=== PATIENT | male | born 1975 | race Caucasian/White ===

== ENCOUNTER 2020-01-03 16:06 | Outpatient (CLI) | payer OTHER, BC, SELFPAY ==
--- NOTE | ~2020-01-03 | CT_ITS ---
EXAMINATION: CT sinus wo con DATE: 01/03/2020 16:23 INDICATION: Chronic congestion. Chronic sinusitis. TECHNIQUE: Computed tomography (CT) of the paranasal sinuses was performed without contrast. Iterativ e reconstruction technique was employed. Exam dose: 284.29 mGy-cm total exam DLP. COMPARISON: None FINDINGS: There is rightward bowing of the nasal septum. There is asymmetric soft tissue swelling of the right middle and inferior nasal turbinates. There is soft tissue thickening in the right maxillary ostium area and mild soft tissue thickening bu t patency of the right infundibulum. The left ostiomeatal unit is clear. There is a small mucus retention cyst or polyp of each maxillary sinus. There is patchy soft tissue thickening of the ethmoid air cells bilaterally and mild mucoperiosteal t hickening of both frontal sinuses. There is a small mucus retention cyst of the right sphenoid sinus. The mastoid air cells are normally developed and aerated. Middle and inner ear apparatus appear margarito l. IMPRESSION: Rightward bowing of nasal septum Asymmetric soft tissue thickening of the right middle and inferior nasal turbinates Soft tissue thickening of the right ostiomeatal unit, right maxillary ostium Small mucous retention cysts of both axillary sinuses and right sphenoid sinus Patchy soft tissue thickening of the ethmoid air cells and minimally of the frontal sinuses Reviewed, dictated and finalized at [facility]. Reviewed, dictated and finalized at [facility]. IMPRESSION: Rightward bowing of nasal septum Asymmetric soft tissue thickening of the right middle and inferior nasal turbin ates Soft tissue thickening of the right ostiomeatal unit, right maxillary ostium Small mucous retention cysts of both axillary sinuses and right sphenoid sinus Patchy soft tissue thickening of the ethmoid air cells and minimally of the fro ntal sinuses
--- NOTE | 2020-01-22 14:40 | WPDPFTINT ---
PFT Interpretation PFT Interpretation: DOS: 01/21/2020 REQUESTING: Dr Jakob Bernabe REASON FOR TESTING: Cough PULMONARY FUNCTION TESTS Results are not reproducible as the patient was short of breath and coughing throughout the test. He was not able to exhale for 6 seconds on any of the single attempts. He struggled throughout the testing. Spirometry: FEV1 85% predicted 3.13 L, normal. FVC 73% mildly decreased. FEV 1% 87% normal, FEF 25-75% is normal, and no change with bronchodilator. Lung volumes: Total lung capacity 88%, normal. Increased RV/TLC% consistent with air trapping. Increased airway resistance 206%. Diffusion: DLCO 93%, normal. Flow volume loop: Unreliable. IMPRESSION: Results are not reliable and reproducible due to the patient not being able to exhale for 6 seconds. His FEV1 was normal, he may have air trapping and the airway resistance was increased.. Lack of response to bronchodilator may not preclude use if clinically indicated. Marga Lorenz MD
== END 2020-01-03 16:07 | disposition home or self-care (01) ==
LOC: ANHIMG 16:08
PROVIDERS: Visit Provider Otolaryngology
DX: J32.9 Chronic sinusitis, unspecified (principal); J34.2 Deviated nasal septum; J34.1 Cyst and mucocele of nose and nasal sinus
CPT/HCPCS: 70486